=== PATIENT | male | born 1965 | race Hispanic/Latino ===

== ENCOUNTER 2019-04-20 15:50 | Emergency (ER) | payer MEDICAID ==
[2019-04-20 16:51] LABS: BASOPHILS % (AUTO) 0.4 % (0.0-5.0); HEMATOCRIT 46.5 % (42-54); LYMPHOCYTES % (AUTO) 25.9 % (21.0-51.0); MEAN CORPUSCULAR HEMOGLOBIN 29.4 pg (27.0-33.0); MEAN CORPUSCULAR HGB CONC 33.3 g/dL (32.0-36.0); MEAN CORPUSCULAR VOLUME 88.2 fL (79-99); MONOCYTES % (AUTO) 6.3 % (3.0-13.0); PLATELET COUNT (AUTO) 189 K/uL (130-400); RED BLOOD CELL COUNT(AUTO) 5.27 MIL/uL (4.50-6.20); RED CELL DISTRIBUTION WIDTH 12.2 % (11.0-15.5); WHITE BLOOD COUNT (AUTO) 10.7 K/uL (4.8-10.8)
[2019-04-20 16:55] LABS: APPEARANCE,URINE Clear (CLEAR); BILIRUBIN,URINE Negative (NEGATIVE); COLOR,URINE Yellow (YELLOW); GLUCOSE, URINE (UA) >=1000 mg/dL (NEGATIVE); KETONES,URINE Negative (NEGATIVE); LEUKOCYTE ESTERASE ,URINE Negative (NEGATIVE); NITRATE,URINE Negative (NEGATIVE); OCCULT BLOOD,URINE Negative (NEGATIVE); PROTEIN,URINE Negative (NEGATIVE)
[2019-04-20 17:04] LABS: AMPHET/METH SCREEN,URINE NEGATIVE (NEGATIVE); BARBITURATE SCREEN, URINE NEGATIVE (NEGATIVE); BENZODIAZEPINES SCREEN,URINE NEGATIVE (NEGATIVE); CANNABINOID SCREEN,URINE NEGATIVE (NEGATIVE); COCAINE SCREEN,URINE POSITIVE (NEGATIVE); OPIATE SCREEN,URINE NEGATIVE (NEGATIVE); PHENCYCLIDINE SCREEN,URINE NEGATIVE (NEGATIVE)
[2019-04-20 17:18] LABS: CARBON DIOXIDE 32 mmol/L (21-32); CHLORIDE 98 mmol/L (101-111); CREATININE 0.9 mg/dL (0.5-1.5); GLOMERULAR FILTR. RATE CALC 93 mL/min (>60); GLUCOSE,RANDOM 341 mg/dL (70-105); POTASSIUM 4.4 mmol/L (3.5-5.1); SODIUM SERUM 135 mmol/L (136-145); UREA NITROGEN, BLOOD 10 mg/dL (7-18)
[2019-04-20 17:22] LABS: ALANINE AMINOTRANSFERASE 29 U/L (12-78); ALBUMIN 3.7 g/dL (3.5-5.0); ASPARTATE AMINOTRANSFERASE 15 U/L (10-37); BILIRUBIN,TOTAL 0.3 mg/dL (0.2-1.0); CREATINE KINASE, TOTAL 48 U/L (21-232); SALICYLATE < 2.8 mg/dL (2.8-20.0); TOTAL PROTEIN, SERUM 7.9 g/dL (6.0-8.3)
[2019-04-20 17:23] LABS: ACETAMINOPHEN < 1 mcg/mL (10-29); ALCOHOL, BLOOD < 3 mg/dL (0-10)
[2019-04-20 17:42] LABS: BACTERIA,URINE None Seen /HPF (None Seen); RBC,URINE 0-1 /HPF (0-1); WBC,URINE 0-1 /HPF (0-1)
[2019-04-20 17:43] LABS: SQUAMOUS EPITHELIAL CELL,UR 0-2 /HPF (0-2)
== END 2019-04-20 17:51 | disposition home or self-care (01) ==
LOC: EDH 15:50
DX: F10.10 Alcohol abuse, uncomplicated (principal); F14.10 Cocaine abuse, uncomplicated; I10 Essential (primary) hypertension; E78.00 Pure hypercholesterolemia, unspecified; E11.9 Type 2 diabetes mellitus without complications; K21.9 Gastro-esophageal reflux disease without esophagitis; Z72.0 Tobacco use
CPT/HCPCS: 36415; 80053; 80305; 81001; 82550; 85025; 93005; 99284; G0480 ×2; G0481

== ENCOUNTER 2019-05-02 12:48 | Emergency (ER) | payer MEDICAID ==
[2019-05-02] MEDS ORDERED: TRAMADOL HCL 50 MG TABLET ONE (14:07)
[2019-05-02] MEDS ORDERED: TETANUS/DIPHTHERIA TOXOID [ADULT] 0.5 ML VIAL IM ONE (14:08)
== END 2019-05-02 18:00 | disposition home or self-care (01) ==
LOC: EDH 12:48
DX: S92.425A Nondisplaced fracture of distal phalanx of left great toe, initial encounter for closed fracture (principal); E11.9 Type 2 diabetes mellitus without complications; K21.9 Gastro-esophageal reflux disease without esophagitis; E78.00 Pure hypercholesterolemia, unspecified; I10 Essential (primary) hypertension; Z72.0 Tobacco use; W01.0XXA Fall on same level from slipping, tripping and stumbling without subsequent striking against object, initial encounter; Y93.89 Activity, other specified; Y92.098 Other place in other non-institutional residence as the place of occurrence of the external cause; Y99.8 Other external cause status
CPT/HCPCS: 73660; 82948; 90471; 90714

== ENCOUNTER 2021-01-04 10:06 | Inpatient (IN) | payer MEDICAID ==
[~2021-01-04] VITALS: Ht 180.3 cm; Wt 116.0 kg
[2021-01-04] MEDS ORDERED: MORPHINE 4 MG SYG IV SCH (12:30)
[2021-01-04] MEDS ORDERED: ONDANSETRON 4MG INJ IVP SCH (12:30)
[2021-01-04 13:10] LABS: BASOPHILS % (AUTO) 0.4 % (0.0-5.0); EOSINOPHILS % (AUTO) 1.9 % (0.0-8.0); HEMATOCRIT 37.1 % (42-54); LYMPHOCYTES % (AUTO) 25.4 % (21.0-51.0); MEAN CORPUSCULAR HGB CONC 33.7 g/dL (32.0-36.0); MEAN CORPUSCULAR VOLUME 89.2 fL (79-99); MONOCYTES % (AUTO) 7.5 % (3.0-13.0); PLATELET COUNT (AUTO) 171 K/uL (130-400); RED BLOOD CELL COUNT(AUTO) 4.16 MIL/uL (4.50-6.20); RED CELL DISTRIBUTION WIDTH 12.3 % (11.0-15.5)
[2021-01-04 13:34] LABS: CREATININE 0.9 mg/dL (0.5-1.5); POTASSIUM 4.5 mmol/L (3.5-5.1)
[2021-01-04 13:40] LABS: ALBUMIN 3.4 g/dL (3.5-5.0); BILIRUBIN,TOTAL 0.5 mg/dL (0.2-1.0); TOTAL PROTEIN, SERUM 6.7 g/dL (6.0-8.3)
[2021-01-04] MEDS ORDERED: DiphenhydrAMINE HCL 50 MG/ML VIAL IV PRN (14:00)
[2021-01-04] MEDS ORDERED: GUAIFENESIN-DM 200/20 MG 10 ML PO PRN (14:00)
[2021-01-04] MEDS ORDERED: DIPHENHYDRAMINE HCL 25 MG CAPSULE PO PRN (14:00)
[2021-01-04] MEDS ORDERED: MORPHINE 2 MG SYG IVP PRN (14:00)
[2021-01-04] MEDS ORDERED: ONDANSETRON 4MG INJ IV PRN (14:00)
[2021-01-04] MEDS ORDERED: ACETAMINOPHEN 325 MG TAB PO PRN ×2 (14:00)
[2021-01-04] MEDS ORDERED: GLUCAGON 1MG KIT 1 MG ML IM PRN (15:30)
[2021-01-04] MEDS ORDERED: DEXTROSE 50%-WATER 50 ML DISP.SYRIN IV PRN (15:30)
[2021-01-04] MEDS: INSULIN HUMULIN R 100 UNIT/ML 3ML SQ SCH ×2 (16:30→21:00)
[2021-01-04 17:55] VITALS: BP 141/73
[2021-01-04] MEDS: KETOROLAC 15MG/ML VIAL (15MG/ML) IV PRN (18:21)
[2021-01-04 20:15] VITALS: BP 113/55
[2021-01-04] MEDS ORDERED: GLIP5TAB11 PO (20:19)
[2021-01-04] MEDS ORDERED: LORA10TA7 PO (20:19)
[2021-01-04] MEDS ORDERED: IBUP-2077 PO (20:19)
[2021-01-04] MEDS ORDERED: PANT40TA54 PO (20:20)
[2021-01-04] MEDS ORDERED: METF-446 PO (20:20)
[2021-01-04] MEDS ORDERED: INSU100V12 SQ (20:21)
[2021-01-04] MEDS ORDERED: LISI40TA9 PO (20:21)
[2021-01-04] MEDS: FAMOTIDINE 20MG TAB PO SCH (20:57)
[2021-01-05] VITALS (7 sets, daily range): BP systolic 110–148; BP diastolic 54–74
[2021-01-05 03:51] LABS: BASOPHILS % (AUTO) 0.3 % (0.0-5.0); EOSINOPHILS % (AUTO) 2.4 % (0.0-8.0); HEMATOCRIT 35.2 % (42-54); LYMPHOCYTES % (AUTO) 30.8 % (21.0-51.0); MEAN CORPUSCULAR HGB CONC 33.2 g/dL (32.0-36.0); MEAN CORPUSCULAR VOLUME 90.3 fL (79-99); MONOCYTES % (AUTO) 7.3 % (3.0-13.0); NEUTROPHILS % (AUTO) 58.4 % (40.0-77.0); PLATELET COUNT (AUTO) 164 K/uL (130-400); RED CELL DISTRIBUTION WIDTH 12.3 % (11.0-15.5); WHITE BLOOD COUNT (AUTO) 7.7 K/uL (4.8-10.8)
[2021-01-05 04:10] LABS: ALBUMIN 2.9 g/dL (3.5-5.0); BILIRUBIN,TOTAL 0.5 mg/dL (0.2-1.0); CREATININE 0.8 mg/dL (0.5-1.5); TOTAL PROTEIN, SERUM 6.4 g/dL (6.0-8.3)
[2021-01-05] MEDS: INSULIN HUMULIN R 100 UNIT/ML 3ML SQ SCH ×4 (06:05→21:00)
[2021-01-05] MEDS: MORPHINE 4 MG SYG IV PRN ×2 (08:36→22:16)
[2021-01-05] MEDS: FAMOTIDINE 20MG TAB PO SCH ×2 (08:36→22:17)
[2021-01-06 04:01] VITALS: BP 140/63
[2021-01-06 04:40] LABS: BASOPHILS % (AUTO) 0.4 % (0.0-5.0); EOSINOPHILS % (AUTO) 2.5 % (0.0-8.0); HEMATOCRIT 35.9 % (42-54); LYMPHOCYTES % (AUTO) 28.1 % (21.0-51.0); MEAN CORPUSCULAR HGB CONC 33.7 g/dL (32.0-36.0); MEAN CORPUSCULAR VOLUME 88.9 fL (79-99); NEUTROPHILS % (AUTO) 59.8 % (40.0-77.0); PLATELET COUNT (AUTO) 176 K/uL (130-400); RED BLOOD CELL COUNT(AUTO) 4.04 MIL/uL (4.50-6.20); RED CELL DISTRIBUTION WIDTH 11.9 % (11.0-15.5); WHITE BLOOD COUNT (AUTO) 8.1 K/uL (4.8-10.8)
[2021-01-06 04:53] LABS: HEMOGLOBIN A1C 7.8 % (4.0-6.0)
[2021-01-06 05:05] LABS: CREATININE 0.9 mg/dL (0.5-1.5); MAGNESIUM 1.8 mg/dL (1.80-2.40)
[2021-01-06 05:46] LABS: ERYTHROCYTE SEDIMENTATION RATE 43 MM/HR (0-20)
[2021-01-06 07:30] VITALS: BP 123/74
[2021-01-06] MEDS: INSULIN HUMULIN R 100 UNIT/ML 3ML SQ SCH ×3 (07:30→16:41)
[2021-01-06] MEDS: FAMOTIDINE 20MG TAB PO SCH ×2 (09:24→20:10)
[2021-01-06 11:00] VITALS: BP 137/81
[2021-01-06] MEDS ORDERED: COMPOUND IV REFRIGERATED 1 EACH IVSOLN MISC PRN (11:00)
[2021-01-06] MEDS ORDERED: VANCOMYCIN PROTOCOL PER PHARMACY IV SCH (11:00)
[2021-01-06] MEDS ORDERED: VANCOMYCIN 2GM/500ML NS IV ONE ×2 (11:00)
[2021-01-06] MEDS: KETOROLAC 15MG/ML VIAL (15MG/ML) IV PRN (11:43)
[2021-01-06] MEDS: MORPHINE 4 MG SYG IV PRN ×2 (13:57→20:10)
[2021-01-06 15:30] VITALS: BP 155/69
[2021-01-06] MEDS: VANCOMYCIN 1.25GM/NS 250ML IVPB SCH ×2 (20:10)
[2021-01-06 20:25] VITALS: BP 124/57
[2021-01-06 23:46] VITALS: BP 121/55
[2021-01-07 04:06] VITALS: BP 107/52
[2021-01-07 04:55] LABS: BASOPHILS % (AUTO) 0.7 % (0.0-5.0); EOSINOPHILS % (AUTO) 3.1 % (0.0-8.0); HEMATOCRIT 36.2 % (42-54); MEAN CORPUSCULAR HEMOGLOBIN 29.8 pg (27.0-33.0); MEAN CORPUSCULAR HGB CONC 34.3 g/dL (32.0-36.0); MONOCYTES % (AUTO) 7.7 % (3.0-13.0); NEUTROPHILS % (AUTO) 62.4 % (40.0-77.0); PLATELET COUNT (AUTO) 187 K/uL (130-400); RED BLOOD CELL COUNT(AUTO) 4.16 MIL/uL (4.50-6.20); RED CELL DISTRIBUTION WIDTH 11.9 % (11.0-15.5); WHITE BLOOD COUNT (AUTO) 7.1 K/uL (4.8-10.8)
[2021-01-07 05:18] LABS: CREATININE 0.8 mg/dL (0.5-1.5); POTASSIUM 4.9 mmol/L (3.5-5.1)
[2021-01-07] MEDS: MORPHINE 4 MG SYG IV PRN ×2 (05:59→16:12)
[2021-01-07] MEDS: INSULIN HUMULIN R 100 UNIT/ML 3ML SQ SCH ×4 (06:17→21:00)
[2021-01-07 07:30] VITALS: BP 109/58
[2021-01-07] MEDS: FAMOTIDINE 20MG TAB PO SCH ×2 (08:54→20:59)
[2021-01-07] MEDS: VANCOMYCIN 1.25GM/NS 250ML IVPB SCH ×2 (08:58)
[2021-01-07] MEDS: KETOROLAC 15MG/ML VIAL (15MG/ML) IV PRN ×2 (09:02→21:16)
[2021-01-07 11:00] VITALS: BP 128/60
[2021-01-07] MEDS ORDERED: UNASYN 3GM VIAL IV SCH (14:00)
[2021-01-07 16:00] VITALS: BP 132/66
[2021-01-07] MEDS: AMP/SULBAC 3GM+NS 100ML 100 ML IV SCH ×2 (16:12→20:59)
[2021-01-07 19:58] VITALS: BP 119/66
[2021-01-07] MEDS: ZOLPIDEM TARTRATE 5 MG TAB PO PRN (21:13)
[2021-01-07 23:18] VITALS: BP 120/61
[2021-01-08] VITALS (17 sets, daily range): BP systolic 113–166; BP diastolic 49–99
[2021-01-08] MEDS: AMP/SULBAC 3GM+NS 100ML 100 ML IV SCH ×4 (03:15→21:00)
[2021-01-08 04:56] LABS: BASOPHILS % (AUTO) 0.4 % (0.0-5.0); EOSINOPHILS % (AUTO) 3.5 % (0.0-8.0); LYMPHOCYTES % (AUTO) 23.2 % (21.0-51.0); MEAN CORPUSCULAR HEMOGLOBIN 29.9 pg (27.0-33.0); MEAN CORPUSCULAR HGB CONC 34.1 g/dL (32.0-36.0); MEAN CORPUSCULAR VOLUME 87.7 fL (79-99); MONOCYTES % (AUTO) 7.6 % (3.0-13.0); NEUTROPHILS % (AUTO) 64.3 % (40.0-77.0); PLATELET COUNT (AUTO) 191 K/uL (130-400); RED BLOOD CELL COUNT(AUTO) 4.22 MIL/uL (4.50-6.20); RED CELL DISTRIBUTION WIDTH 11.9 % (11.0-15.5); WHITE BLOOD COUNT (AUTO) 7.3 K/uL (4.8-10.8)
[2021-01-08 05:16] LABS: CREATININE 0.9 mg/dL (0.5-1.5); POTASSIUM 4.4 mmol/L (3.5-5.1)
[2021-01-08] MEDS: INSULIN HUMULIN R 100 UNIT/ML 3ML SQ SCH ×4 (06:26→21:01)
[2021-01-08] MEDS: FAMOTIDINE 20MG TAB PO SCH ×2 (08:32→21:01)
[2021-01-08] MEDS: KETOROLAC 15MG/ML VIAL (15MG/ML) IV PRN ×2 (08:56→21:13)
[2021-01-08] MEDS ORDERED: 0.9%NACL 1000ML 1,000 ML IV ONE (14:44)
[2021-01-08] MEDS ORDERED: LIDOCAINE HCL 1% 20 ML VIAL ONE (14:46)
[2021-01-08] MEDS ORDERED: BUPIVACAINE/PF 0.5% 30ML VIAL ONE (14:46)
[2021-01-08] MEDS ORDERED: MIDAZOLAM HCL 1 MG/ML 2ML VIAL ONE ×3 (14:48→15:47)
[2021-01-08] MEDS ORDERED: FENTANYL CITRATE PF 50 MCG/1 ML 2ML VIAL ONE ×2 (14:49→15:16)
[2021-01-08] MEDS ORDERED: PROPOFOL 10 MG/ML 20ML VIAL IV ONE ×2 (14:49→15:12)
[2021-01-09] MEDS: AMP/SULBAC 3GM+NS 100ML 100 ML IV SCH ×4 (03:24→20:16)
[2021-01-09 03:29] VITALS: BP 128/51
[2021-01-09] MEDS: INSULIN HUMULIN R 100 UNIT/ML 3ML SQ SCH ×4 (06:14→20:40)
[2021-01-09 07:49] VITALS: BP 154/79
[2021-01-09] MEDS: FAMOTIDINE 20MG TAB PO SCH ×2 (09:48→20:16)
[2021-01-09] MEDS: MORPHINE 4 MG SYG IV PRN ×2 (09:49→15:56)
[2021-01-09 10:49] VITALS: BP 123/80
[2021-01-09 17:05] VITALS: BP 163/84
[2021-01-09 20:26] VITALS: BP 97/58
[2021-01-09 23:32] VITALS: BP 116/66
[2021-01-10] MEDS: AMP/SULBAC 3GM+NS 100ML 100 ML IV SCH ×4 (03:08→20:10)
[2021-01-10 03:51] VITALS: BP 120/63
[2021-01-10] MEDS ORDERED: MORPHINE 4 MG SYG IVP PRN (05:00)
[2021-01-10] MEDS: INSULIN HUMULIN R 100 UNIT/ML 3ML SQ SCH ×4 (06:32→20:13)
[2021-01-10 08:10] VITALS: BP 150/79
[2021-01-10] MEDS ORDERED: ACETAMINOPHEN WITH CODEINE 1 TAB TAB ONE (08:53)
[2021-01-10] MEDS: FAMOTIDINE 20MG TAB PO SCH ×2 (08:54→20:10)
[2021-01-10] MEDS: GABAPENTIN 300 MG CAPSULE PO SCH ×2 (09:08→20:10)
[2021-01-10 10:53] VITALS: BP 149/81
[2021-01-10 16:15] VITALS: BP 145/54
[2021-01-10 19:31] VITALS: BP 149/80
[2021-01-10] MEDS: ZOLPIDEM TARTRATE 5 MG TAB PO PRN (20:11)
[2021-01-10 23:56] VITALS: BP 114/63
[2021-01-11 04:20] VITALS: BP 114/63
[2021-01-11] MEDS: AMP/SULBAC 3GM+NS 100ML 100 ML IV SCH ×4 (04:47→20:54)
[2021-01-11] MEDS: ACETAMINOPHEN WITH CODEINE 1 TAB TAB PO PRN ×3 (04:48→20:55)
[2021-01-11] MEDS: INSULIN HUMULIN R 100 UNIT/ML 3ML SQ SCH ×4 (06:54→20:56)
[2021-01-11 07:57] VITALS: BP 124/70
[2021-01-11] MEDS: GABAPENTIN 300 MG CAPSULE PO SCH ×2 (10:25→20:54)
[2021-01-11] MEDS: FAMOTIDINE 20MG TAB PO SCH ×2 (10:25→20:54)
[2021-01-11 11:22] VITALS: BP 150/72
[2021-01-11 16:17] VITALS: BP 134/65
[2021-01-11] MEDS ORDERED: LISINOPRIL 10 MG TABLET PO SCH (16:30)
[2021-01-11] MEDS: METFORMIN HCL 500 MG TABLET PO SCH (17:45)
[2021-01-11 20:46] VITALS: BP 153/65
[2021-01-11] MEDS: ZOLPIDEM TARTRATE 5 MG TAB PO PRN (20:54)
[2021-01-11] MEDS: METOPROLOL TARTRATE 25 MG TAB PO SCH (20:54)
[2021-01-11] MEDS ORDERED: ATORVASTATIN 20 MG TABLET PO SCH (21:00)
[2021-01-11 23:54] VITALS: BP 100/49
[2021-01-12] MEDS: AMP/SULBAC 3GM+NS 100ML 100 ML IV SCH ×3 (03:33→16:15)
[2021-01-12] MEDS: ACETAMINOPHEN WITH CODEINE 1 TAB TAB PO PRN ×2 (03:34→09:12)
[2021-01-12 04:12] VITALS: BP 100/46
[2021-01-12 04:45] LABS: HEMATOCRIT 34.4 % (42-54); MEAN CORPUSCULAR HEMOGLOBIN 30.3 pg (27.0-33.0); MEAN CORPUSCULAR HGB CONC 34.6 g/dL (32.0-36.0); MEAN CORPUSCULAR VOLUME 87.5 fL (79-99); RED BLOOD CELL COUNT(AUTO) 3.93 MIL/uL (4.50-6.20); RED CELL DISTRIBUTION WIDTH 11.9 % (11.0-15.5); WHITE BLOOD COUNT (AUTO) 11.7 K/uL (4.8-10.8)
[2021-01-12 05:11] LABS: POTASSIUM 4.1 mmol/L (3.5-5.1)
[2021-01-12] MEDS: INSULIN HUMULIN R 100 UNIT/ML 3ML SQ SCH ×3 (05:22→16:15)
[2021-01-12 07:30] VITALS: BP 87/57
[2021-01-12] MEDS: FAMOTIDINE 20MG TAB PO SCH (08:03)
[2021-01-12] MEDS: METFORMIN HCL 500 MG TABLET PO SCH ×2 (08:03→16:15)
[2021-01-12] MEDS: METOPROLOL TARTRATE 25 MG TAB PO SCH (08:09)
[2021-01-12 08:32] VITALS: BP 97/57
[2021-01-12] MEDS ORDERED: LISINOPRIL 10 MG TABLET PO SCH (09:00)
[2021-01-12 11:07] VITALS: BP 117/59
[2021-01-12] MEDS ORDERED: NICOTINE 21 MG/ 24 HR PATCH TD SCH (13:00)
[2021-01-12] MEDS ORDERED: NICOTINE 21 MG/ 24 HR PATCH TD ONE (13:03)
[2021-01-12] MEDS: GABAPENTIN 300 MG CAPSULE PO SCH (13:05)
[2021-01-12 15:49] VITALS: BP 150/69
== END 2021-01-12 18:42 | DRG 314 ==
LOC: EDH 10:06 → EDHIP 10:07 → OBSVTOIN 10:07 → 4AH 17:16
PROVIDERS: ADMIT Internal Medicine; ATTEND Internal Medicine
PROC: 0JBQ0ZZ Excision of Right Foot Subcutaneous Tissue and Fascia, Open Approach (ICD-10-PCS; 2021-01-05)
PROC: 0Y6P0Z1 Detachment at Right 1st Toe, High, Open Approach (ICD-10-PCS; principal; 2021-01-08 15:04)
DX: S92.101A Unspecified fracture of right talus, initial encounter for closed fracture (principal); E11.621 Type 2 diabetes mellitus with foot ulcer; E66.01 Morbid (severe) obesity due to excess calories; M86.671 Other chronic osteomyelitis, right ankle and foot; L97.519 Non-pressure chronic ulcer of other part of right foot with unspecified severity; L03.90 Cellulitis, unspecified; L02.611 Cutaneous abscess of right foot; I10 Essential (primary) hypertension; E11.69 Type 2 diabetes mellitus with other specified complication; E78.00 Pure hypercholesterolemia, unspecified; F14.90 Cocaine use, unspecified, uncomplicated; F19.10 Other psychoactive substance abuse, uncomplicated; B95.8 Unspecified staphylococcus as the cause of diseases classified elsewhere; M47.816 Spondylosis without myelopathy or radiculopathy, lumbar region; R53.81 Other malaise; F17.200 Nicotine dependence, unspecified, uncomplicated; Z20.822 Contact with and (suspected) exposure to COVID-19; W12.XXXA Fall on and from scaffolding, initial encounter; Y93.89 Activity, other specified; Y92.098 Other place in other non-institutional residence as the place of occurrence of the external cause; Y99.8 Other external cause status; Z68.35 Body mass index [BMI] 35.0-35.9, adult; Z79.84 Long term (current) use of oral hypoglycemic drugs; Z79.899 Other long term (current) drug therapy; Z83.3 Family history of diabetes mellitus; Z82.49 Family history of ischemic heart disease and other diseases of the circulatory system
CPT/HCPCS: 36415; 71045; 71250; 72125; 72131; 73562; 73610; 73630; 73700; 73718; 80048; 80053; 80061; 80202; 82948; 83036; 83735; 84145; 84484; 85025; 85027; 85651; 86140; 87070; 87076; 87077; 87186; 87635; 93005; 93925; 93971; 97039; G0378; J0295; J1200; J1815; J1885; J2250; J2270; J2405; J2704; J3010; J3370; J3490; J7030; J7040; J7050; Q0163

== ENCOUNTER 2021-11-20 07:53 | Emergency (ER) | payer MEDICAID ==
[~2021-11-20] VITALS: Ht 180.3 cm; Wt 108.9 kg
[~2021-11-20 07:53] MED LIST: GLIP5TAB11 PO; IBUP-2077 PO; INSU100V12 SQ; LISI40TA9 PO; LORA10TA7 PO; METF-446 PO; PANT40TA54 PO
[2021-11-20 07:56] VITALS: BP 188/86
[2021-11-20 08:21] LABS: BASOPHILS % (AUTO) 0.5 % (0.0-5.0); EOSINOPHILS % (AUTO) 2.7 % (0.0-8.0); HEMATOCRIT 42.3 % (42-54); LYMPHOCYTES % (AUTO) 32.1 % (21.0-51.0); MEAN CORPUSCULAR HEMOGLOBIN 28.9 pg (27.0-33.0); MEAN CORPUSCULAR HGB CONC 34.3 g/dL (32.0-36.0); MEAN CORPUSCULAR VOLUME 84.3 fL (79-99); MONOCYTES % (AUTO) 5.1 % (3.0-13.0); NEUTROPHILS % (AUTO) 59.2 % (40.0-77.0); PLATELET COUNT (AUTO) 183 K/uL (130-400); RED BLOOD CELL COUNT(AUTO) 5.02 MIL/uL (4.50-6.20); RED CELL DISTRIBUTION WIDTH 12.8 % (11.0-15.5); WHITE BLOOD COUNT (AUTO) 7.3 K/uL (4.8-10.8)
[2021-11-20 08:33] LABS: CREATININE 0.9 mg/dL (0.5-1.5); POTASSIUM 4.3 mmol/L (3.5-5.1)
[2021-11-20 08:35] LABS: TOTAL PROTEIN, SERUM 6.8 g/dL (6.0-8.3)
[2021-11-20 09:26] LABS: ERYTHROCYTE SEDIMENTATION RATE 12 MM/HR (0-20)
[2021-11-20] MEDS ORDERED: INSULIN HUMULIN R 100 UNIT/ML 3ML SQ ONE (11:30)
[2021-11-20] MEDS ORDERED: CLINDAMYCIN 150 MG CAP PO ONE (12:00)
[2021-11-20] MEDS ORDERED: CLIN-141 PO (12:06)
[2021-11-20] MEDS ORDERED: METF-446 PO (12:06)
== END 2021-11-20 12:29 | disposition left against medical advice (07) ==
LOC: EDH 07:53
DX: L02.611 Cutaneous abscess of right foot (principal); M86.8X7 Other osteomyelitis, ankle and foot; E11.65 Type 2 diabetes mellitus with hyperglycemia; E78.00 Pure hypercholesterolemia, unspecified; F32.A Depression, unspecified; I10 Essential (primary) hypertension; E66.9 Obesity, unspecified; Z79.1 Long term (current) use of non-steroidal anti-inflammatories (NSAID); Z79.4 Long term (current) use of insulin; Z79.899 Other long term (current) drug therapy; Z68.33 Body mass index [BMI] 33.0-33.9, adult
CPT/HCPCS: 99285; 73718; 80053; 85025; 85651; 87070; 87076; 87077; 87186; 82948; 83605; 36415; 73660; 96372; J1815

== ENCOUNTER 2021-11-23 12:13 | Inpatient (IN) | payer MEDICAID ==
[~2021-11-23] VITALS: Ht 180.3 cm; Wt 105.2 kg
[~2021-11-23 12:13] MED LIST changes: +CLIN-141 PO
[2021-11-23] MEDS ORDERED: ONDANSETRON 4MG INJ IVP ONE (14:00)
[2021-11-23] MEDS ORDERED: VANCOMYCIN 1G VIAL IVPB ONE (14:00)
[2021-11-23] MEDS ORDERED: ZOSYN 3.375GM +NS 50ML IV ONE (14:00)
[2021-11-23] MEDS ORDERED: MORPHINE 2 MG SYG IVP ONE (14:00)
[2021-11-23] MEDS ORDERED: 0.9%NACL 1000ML 1,000 ML IV ONE (14:00)
[2021-11-23 14:03] LABS: CREATININE 0.9 mg/dL (0.5-1.5); POTASSIUM 4.3 mmol/L (3.5-5.1)
[2021-11-23 14:08] LABS: ALBUMIN 3.9 g/dL (3.5-5.0); BASOPHILS % (AUTO) 0.5 % (0.0-5.0); EOSINOPHILS % (AUTO) 1.3 % (0.0-8.0); LYMPHOCYTES % (AUTO) 23.6 % (21.0-51.0); MEAN CORPUSCULAR HEMOGLOBIN 29.1 pg (27.0-33.0); MEAN CORPUSCULAR HGB CONC 34.7 g/dL (32.0-36.0); MEAN CORPUSCULAR VOLUME 83.8 fL (79-99); MONOCYTES % (AUTO) 4.9 % (3.0-13.0); NEUTROPHILS % (AUTO) 68.8 % (40.0-77.0); PLATELET COUNT (AUTO) 226 K/uL (130-400); RED BLOOD CELL COUNT(AUTO) 5.85 MIL/uL (4.50-6.20); RED CELL DISTRIBUTION WIDTH 12.9 % (11.0-15.5); TOTAL PROTEIN, SERUM 8.6 g/dL (6.0-8.3); WHITE BLOOD COUNT (AUTO) 10.1 K/uL (4.8-10.8)
[2021-11-23] MEDS ORDERED: VANCOMYCIN PROTOCOL PER PHARMACY IV SCH (15:30)
[2021-11-23] MEDS ORDERED: ACETAMINOPHEN 325 MG TAB PO PRN (15:30)
[2021-11-23] MEDS ORDERED: DEXTROSE 50%-WATER 50 ML DISP.SYRIN IV PRN (15:30)
[2021-11-23] MEDS ORDERED: ONDANSETRON 4MG INJ IVP PRN (15:30)
[2021-11-23] MEDS ORDERED: GLUCAGON 1MG KIT 1 MG ML IM PRN (15:30)
[2021-11-23] MEDS ORDERED: VANCOMYCIN 1G/250ML KIT 250 ML IV ONE ×2 (15:40→16:00)
[2021-11-23] MEDS ORDERED: CEFEPIME HCL 1 GM VIAL ONE (16:23)
[2021-11-23] MEDS: CEFEPIME HCL 2 GM VIAL IVP SCH ×2 (16:28→23:04)
[2021-11-23] MEDS: INSULIN HUMULIN R 100 UNIT/ML 3ML SQ SCH ×2 (16:32→20:16)
[2021-11-23] MEDS ORDERED: CLIN-141 PO (21:01)
[2021-11-23] MEDS ORDERED: METF-446 PO (21:01)
[2021-11-23 22:40] VITALS: BP 166/77
[2021-11-23] MEDS: VANCOMYCIN 750MG VIAL IVPB SCH (23:04)
[2021-11-23] MEDS ORDERED: MORPHINE 4 MG SYG IM PRN (23:30)
[2021-11-23] MEDS: MORPHINE 4 MG SYG IVP PRN (23:38)
[2021-11-24] VITALS (17 sets, daily range): BP systolic 93–165; BP diastolic 53–96
[2021-11-24 03:43] LABS: BASOPHILS % (AUTO) 0.5 % (0.0-5.0); EOSINOPHILS % (AUTO) 4.2 % (0.0-8.0); HEMATOCRIT 41.3 % (42-54); LYMPHOCYTES % (AUTO) 32.5 % (21.0-51.0); MEAN CORPUSCULAR HEMOGLOBIN 28.7 pg (27.0-33.0); MEAN CORPUSCULAR HGB CONC 34.4 g/dL (32.0-36.0); MEAN CORPUSCULAR VOLUME 83.6 fL (79-99); MONOCYTES % (AUTO) 5.7 % (3.0-13.0); NEUTROPHILS % (AUTO) 56.4 % (40.0-77.0); PLATELET COUNT (AUTO) 187 K/uL (130-400); RED BLOOD CELL COUNT(AUTO) 4.94 MIL/uL (4.50-6.20); RED CELL DISTRIBUTION WIDTH 12.8 % (11.0-15.5); WHITE BLOOD COUNT (AUTO) 9.1 K/uL (4.8-10.8)
[2021-11-24 03:51] LABS: HEMOGLOBIN A1C 10.8 % (4.0-6.0)
[2021-11-24 04:01] LABS: ALBUMIN 2.9 g/dL (3.5-5.0); CREATININE 0.9 mg/dL (0.5-1.5); MAGNESIUM 1.9 mg/dL (1.80-2.40); POTASSIUM 3.6 mmol/L (3.5-5.1); TOTAL PROTEIN, SERUM 6.4 g/dL (6.0-8.3)
[2021-11-24] MEDS: INSULIN HUMULIN R 100 UNIT/ML 3ML SQ SCH ×5 (05:07→21:00)
[2021-11-24] MEDS: ENOXAPARIN SODIUM 30 MG/0.3 ML SQ SCH (08:04)
[2021-11-24] MEDS: CEFEPIME HCL 2 GM VIAL IVP SCH ×3 (08:45→23:17)
[2021-11-24] MEDS: VANCOMYCIN 750MG VIAL IVPB SCH ×3 (08:45→23:18)
[2021-11-24] MEDS ORDERED: TRAMADOL HCL 50 MG TABLET PO PRN (10:00)
[2021-11-24] MEDS: MORPHINE 4 MG SYG IVP PRN (17:08)
[2021-11-24] MEDS ORDERED: PROPOFOL 10 MG/ML 20ML VIAL IV ONE (19:01)
[2021-11-24] MEDS ORDERED: FENTANYL CITRATE PF 50 MCG/1 ML 2ML VIAL ONE (19:01)
[2021-11-24] MEDS ORDERED: BUPIVACAINE/PF 0.5% 30ML VIAL INJ ONE (19:30)
[2021-11-24] MEDS ORDERED: LIDOCAINE HCL-MPF 2% 10ML AMP IJ ONE (19:30)
[2021-11-24] MEDS ORDERED: GLYCOPYRROLATE 1 MG/5 ML SYRINGE ONE (20:01)
[2021-11-25] MEDS: MORPHINE 4 MG SYG IVP PRN ×3 (02:34→20:19)
[2021-11-25 04:54] VITALS: BP 146/90
[2021-11-25] MEDS: INSULIN HUMULIN R 100 UNIT/ML 3ML SQ SCH ×4 (05:16→20:20)
[2021-11-25 07:30] VITALS: BP 150/90
[2021-11-25] MEDS ORDERED: 0.9% NACL 250ML 250 ML ONE (08:09)
[2021-11-25] MEDS: CEFEPIME HCL 2 GM VIAL IVP SCH (08:23)
[2021-11-25] MEDS: ENOXAPARIN SODIUM 30 MG/0.3 ML SQ SCH (08:24)
[2021-11-25] MEDS: VANCOMYCIN 750MG VIAL IVPB SCH (08:24)
[2021-11-25 11:00] VITALS: BP 165/87
[2021-11-25] MEDS ORDERED: MAGNESIUM 2GM PREMIX 50ML 50 ML IV PRN (14:30)
[2021-11-25] MEDS ORDERED: KCL 20 MEQ ERTAB PO PRN (14:30)
[2021-11-25] MEDS ORDERED: POTASSIUM CHLORIDE 20MEQ/100ML 100 ML IV PRN (14:30)
[2021-11-25] MEDS ORDERED: LIDOCAINE HCL-MPF 1% 2ML VIAL IV PRN (14:30)
[2021-11-25 15:14] LABS: INR 0.93 (0.85-1.15); PROTHROMBIN TIME 10.2 SEC (9.6-11.6)
[2021-11-25 16:00] VITALS: BP 142/81
[2021-11-25] MEDS: CEFAZOLIN SODIUM 1 GM VIAL IVP SCH ×2 (16:05→23:18)
[2021-11-25 19:00] VITALS: BP 145/80
[2021-11-26] VITALS: BP 146/83
[2021-11-26] MEDS: POTASSIUM CHLORIDE 10% ELIXIR 20 MEQ/15 ML UDCUP PO PRN ×2 (01:07→02:30)
[2021-11-26 04:00] VITALS: BP 140/74
[2021-11-26 04:43] LABS: BASOPHILS % (AUTO) 0.4 % (0.0-5.0); EOSINOPHILS % (AUTO) 3.2 % (0.0-8.0); HEMATOCRIT 40.6 % (42-54); LYMPHOCYTES % (AUTO) 27.4 % (21.0-51.0); MEAN CORPUSCULAR HGB CONC 34.5 g/dL (32.0-36.0); MEAN CORPUSCULAR VOLUME 84.1 fL (79-99); MONOCYTES % (AUTO) 7.3 % (3.0-13.0); NEUTROPHILS % (AUTO) 61.1 % (40.0-77.0); PLATELET COUNT (AUTO) 163 K/uL (130-400); RED BLOOD CELL COUNT(AUTO) 4.83 MIL/uL (4.50-6.20); RED CELL DISTRIBUTION WIDTH 12.7 % (11.0-15.5); WHITE BLOOD COUNT (AUTO) 7.9 K/uL (4.8-10.8)
[2021-11-26 04:56] LABS: CREATININE 0.6 mg/dL (0.5-1.5)
[2021-11-26 04:58] LABS: INR 0.94 (0.85-1.15); PROTHROMBIN TIME 10.3 SEC (9.6-11.6)
[2021-11-26 05:00] LABS: PARTIAL THROMBOPLASTIN TIME 29.3 SEC (26.3-35.5)
[2021-11-26] MEDS: INSULIN HUMULIN R 100 UNIT/ML 3ML SQ SCH ×2 (05:40→11:57)
[2021-11-26 07:30] VITALS: BP 142/81
[2021-11-26] MEDS: MORPHINE 4 MG SYG IVP PRN (07:44)
[2021-11-26] MEDS: CEFAZOLIN SODIUM 1 GM VIAL IVP SCH (07:44)
[2021-11-26] MEDS: ENOXAPARIN SODIUM 30 MG/0.3 ML SQ SCH (07:44)
[2021-11-26 11:00] VITALS: BP 150/80
== END 2021-11-26 16:15 | disposition home or self-care (01) | DRG 314 ==
LOC: EDH 12:13 → EDHIP 12:14 → 4AH 22:28
PROVIDERS: ADMIT Internal Medicine Infectious Disease; ATTEND Internal Medicine Infectious Disease
PROC: 0Y6P0Z0 Detachment at Right 1st Toe, Complete, Open Approach (ICD-10-PCS; principal; 2021-11-24 19:22)
DX: E10.69 Type 1 diabetes mellitus with other specified complication (principal); E10.42 Type 1 diabetes mellitus with diabetic polyneuropathy; M86.171 Other acute osteomyelitis, right ankle and foot; L97.519 Non-pressure chronic ulcer of other part of right foot with unspecified severity; L03.039 Cellulitis of unspecified toe; E10.65 Type 1 diabetes mellitus with hyperglycemia; E66.9 Obesity, unspecified; I10 Essential (primary) hypertension; E10.621 Type 1 diabetes mellitus with foot ulcer; M86.9 Osteomyelitis, unspecified; Z91.19 Patient's noncompliance with other medical treatment and regimen; Z68.32 Body mass index [BMI] 32.0-32.9, adult
CPT/HCPCS: 36415; 71045; 73660; 73718; 80048; 80053; 80202; 82010; 82948; 83036; 83605; 83735; 85025; 85610; 85651; 85730; 87040; 87070; 87076; 87077; 87186; 87635; 96372; G0378; J0690; J0692; J1650; J1815; J2270; J2405; J2543; J2704; J3010; J3370; J3490; J7030; J7050

== ENCOUNTER 2021-12-03 16:38 | Emergency (ER) | payer MEDICAID ==
[~2021-12-03] VITALS: Ht 177.8 cm; Wt 108.9 kg
[~2021-12-03 16:38] MED LIST changes: -CLIN-141 PO
[2021-12-03] MEDS ORDERED: ACETAMINOPHEN 500 MG TABLET PO SCH (18:30)
[2021-12-03 18:38] LABS: CREATININE 1.1 mg/dL (0.5-1.5); POTASSIUM 3.8 mmol/L (3.5-5.1)
[2021-12-03 18:42] LABS: ALBUMIN 3.1 g/dL (3.5-5.0)
[2021-12-03 19:48] LABS: AMPHET/METH SCREEN,URINE NEGATIVE (NEGATIVE); BARBITURATE SCREEN, URINE NEGATIVE (NEGATIVE); BENZODIAZEPINES SCREEN,URINE NEGATIVE (NEGATIVE); COCAINE SCREEN,URINE POSITIVE (NEGATIVE)
[2021-12-03 19:49] LABS: CANNABINOID SCREEN,URINE POSITIVE (NEGATIVE); PHENCYCLIDINE SCREEN,URINE NEGATIVE (NEGATIVE)
[2021-12-03 20:43] LABS: BASOPHILS % (AUTO) 0.5 % (0.0-5.0); EOSINOPHILS % (AUTO) 2.1 % (0.0-8.0); HEMATOCRIT 36.8 % (42-54); MEAN CORPUSCULAR HEMOGLOBIN 28.8 pg (27.0-33.0); MEAN CORPUSCULAR HGB CONC 34.2 g/dL (32.0-36.0); MONOCYTES % (AUTO) 7.7 % (3.0-13.0); NEUTROPHILS % (AUTO) 60.2 % (40.0-77.0); PLATELET COUNT (AUTO) 171 K/uL (130-400); RED BLOOD CELL COUNT(AUTO) 4.38 MIL/uL (4.50-6.20); RED CELL DISTRIBUTION WIDTH 12.3 % (11.0-15.5); WHITE BLOOD COUNT (AUTO) 6.6 K/uL (4.8-10.8)
[2021-12-03] MEDS ORDERED: 0.9%NACL 1000ML 2,000 ML IV SCH (21:00)
[2021-12-03 21:30] VITALS: BP 127/81
[2021-12-03] MEDS ORDERED: CEFTRIAXONE 1G VIAL IVP SCH (22:00)
== END 2021-12-03 21:58 | disposition home or self-care (01) ==
LOC: EDH 16:38
DX: S92.101A Unspecified fracture of right talus, initial encounter for closed fracture (principal); E11.9 Type 2 diabetes mellitus without complications; E78.00 Pure hypercholesterolemia, unspecified; I10 Essential (primary) hypertension; X58.XXXA Exposure to other specified factors, initial encounter; Y93.89 Activity, other specified; Y92.89 Other specified places as the place of occurrence of the external cause; Y99.8 Other external cause status
CPT/HCPCS: 99284; 96374; 80053; 80305; 85025; 87040 ×2; 36415; 73600; 73630; J0696